=== PATIENT | female | born 1980 | race Caucasian/White ===

== ENCOUNTER → 2021-04-18 | Outpatient (CLI) | payer OTHER ==
[2021-04-20 07:11] LABS: VITAMIN D, 25-HYDROXY 41.9 ng/mL (30.0-100.0)
[2021-04-20 08:38] LABS: RHEUMATOID ARTHRITIS FACTOR <10.0 IU/mL (0.0-13.9)
== END ==
LOC: LAB 14:13
PROVIDERS: Nurse Practitioner Family
DX: M79.10 Myalgia, unspecified site (principal); R53.83 Other fatigue; M79.642 Pain in left hand; M79.641 Pain in right hand; M25.561 Pain in right knee; M25.461 Effusion, right knee
CPT/HCPCS: 36415; 73130; 73560; 82550; 82728; 83520; 84439; 84443; 85652; 86140; 86200; 86431